=== PATIENT | male | born 1985 | race Native Hawaiian/Other Pacific Islander ===

== ENCOUNTER 2019-11-23 20:24 | Emergency (ER) | payer SELFPAY ==
[2019-11-23 21:27] VITALS: BP 130/71
== END 2019-11-23 21:50 | disposition left against medical advice (07) ==
LOC: ED 20:24
DX: R10.9 Unspecified abdominal pain (principal); Z53.21 Procedure and treatment not carried out due to patient leaving prior to being seen by health care provider